=== PATIENT | female | born 1965 | race African-American/Black ===

== ENCOUNTER 2022-07-05 12:56 | Emergency (ER) | payer OTHER ==
[2022-07-05 13:22] VITALS: BP 129/89; PULSE 86; RESP 18; TEMP 98.2; BMI 25.4
[2022-07-05] MEDS ORDERED: ACETAMINOPHEN 500 MG TABLET (FP) PO ONE (14:22)
[2022-07-05] MEDS ORDERED: guaiFENesin 200 MG/10 ML 10 ML UNIT-DOSE CUPS PO ONE (14:23)
[2022-07-05] MEDS ORDERED: guaiFENesin/D-METHORPHAN HB 10 ML UNIT-DOSE CUPS ONE (14:47)
[2022-07-05] MEDS ORDERED: ACETAMINOPHEN 500 MG TABLET (FP) ONE (14:48)
== END 2022-07-05 15:34 | disposition home or self-care (01) ==
LOC: JER 12:56
DX: R05.9 Cough, unspecified (principal)
CPT/HCPCS: 0241U-QW; 99283-25